=== PATIENT | female | born 1945 | race Caucasian/White ===

== ENCOUNTER 2017-09-04 09:57 | Emergency (ER) | payer OTHER ==
[2017-09-04] MEDS: HYDROCODONE/APAP (5/325) TAB PO (12:54)
[2017-09-04] MEDS: KETOROLAC 30 MG INJ IM (12:54)
== END 2017-09-04 15:38 | disposition home or self-care (01) ==
LOC: FTE 09:57
DX: S39.92XA Unspecified injury of lower back, initial encounter (principal); W10.9XXA Fall (on) (from) unspecified stairs and steps, initial encounter; Y92.9 Unspecified place or not applicable
CPT/HCPCS: 72128; 72131; 96372; 99285-25

== ENCOUNTER 2018-10-06 10:46 | Inpatient (IN) | payer OTHER ==
[~2018-10-06 10:46] MED LIST: BUPIVACAINE 0.5% (SDV) 30 ML, morphine SULFATE (PF) 8 MG, EPINEPHrine 0.3 MG, KETOROLAC... IRR; EPHEDrine SULFATE 50 MG/5 ML SYG; GLYCOPYRROLATE 0.4 MG INJ; NEOSTIGMINE 3 MG/3 ML SYRINGE
[2018-10-06] MEDS ORDERED: ROCURONIUM 50 MG INJ (12:00)
[2018-10-06] MEDS ORDERED: CEFAZOLIN 1 GM INJ (12:00)
[2018-10-06] MEDS ORDERED: PROPOFOL 20 ML (12:00)
[2018-10-06] MEDS ORDERED: MIDAZOLAM 1 MG/ML 2 ML INJ (12:01)
[2018-10-06] MEDS ORDERED: ROPIVACAINE 0.5 % 30 ML VIAL (12:01)
[2018-10-06] MEDS ORDERED: FENTAnyl 50 MCG/ML VIAL (12:01)
[2018-10-06] MEDS: GABAPENTIN 300 MG CAP PO ×2 (12:10→21:09)
[2018-10-06] MEDS: DEXAMETHASONE 1 MG TAB PO ×2 (12:10→12:13)
[2018-10-06] MEDS ORDERED: ONDANSETRON 4 MG INJ IV ×2 (13:00→14:30)
[2018-10-06] MEDS ORDERED: LABETALOL HCL 20MG INJ IV (13:00)
[2018-10-06] MEDS ORDERED: FENTAnyl 50 MCG/ML VIAL IV ×2 (13:00)
[2018-10-06] MEDS ORDERED: OXYCODONE/ACETAMINOPHEN (5/325) TAB PO (13:00)
[2018-10-06] MEDS ORDERED: METOCLOPRAMIDE 10 MG INJ IV (13:00)
[2018-10-06] MEDS ORDERED: EPHEDrine SULFATE 50 MG/5 ML SYG IV (13:00)
[2018-10-06] MEDS ORDERED: THROMBIN (BOVINE) 5,000 UNIT VIAL TP (13:16)
[2018-10-06] MEDS ORDERED: CA CHLORIDE (GM) 10% 10 ML INJ (13:16)
[2018-10-06] MEDS: POLYMYXIN/BACITRACIN 1L IRRIG (13:17)
[2018-10-06] MEDS ORDERED: METOCLOPRAMIDE 10 MG INJ (13:50)
[2018-10-06] MEDS ORDERED: DEXAMETHASONE 4 MG/ML 5 ML INJ (13:50)
[2018-10-06] MEDS ORDERED: KETOROLAC 30 MG INJ (13:50)
[2018-10-06] MEDS ORDERED: ONDANSETRON 4 MG INJ (13:50)
[2018-10-06] MEDS ORDERED: PHENYLephrine (100 MCG/ML) 5ML SYG (13:51)
[2018-10-06] MEDS ORDERED: LOPERAMIDE 2 MG CAP PO (14:30)
[2018-10-06] MEDS ORDERED: NACL 0.9% 3 ML SYG IV (14:30)
[2018-10-06] MEDS ORDERED: ZOLPIDEM 5 MG TAB PO (14:30)
[2018-10-06] MEDS ORDERED: MAGNESIUM HYDROXIDE 30ML CUP PO (14:30)
[2018-10-06] MEDS ORDERED: DIPHENHYDRAMINE 50 MG INJ IV (14:30)
[2018-10-06] MEDS ORDERED: HYDROmorphONE 1 MG/ML SYG IV (14:30)
[2018-10-06] MEDS ORDERED: oxyCODONE 5 MG TAB PO ×2 (14:30)
[2018-10-06] MEDS ORDERED: HYDROCORTISONE 100 MG INJ (15:01)
[2018-10-06] MEDS ORDERED: hydrALAzine 20 MG INJ (15:01)
[2018-10-06] MEDS ORDERED: LABETALOL HCL 20MG INJ (15:02)
[2018-10-06] MEDS ORDERED: DIPHENHYDRAMINE 50 MG INJ (15:05)
[2018-10-06] MEDS: CEFAZOLIN 1 GM/50 ML (PMX) 50 ML IVPB ×2 (15:19→21:17)
[2018-10-06] MEDS: HYDROmorphONE 1 MG/5 ML IV SYRINGE IV ×3 (15:24→15:44)
[2018-10-06] MEDS: TRANEXAMIC ACID 1,000 MG in SOD CHLORIDE 0.9% 100 ML IVPB (15:24)
[2018-10-06] MEDS: hydrALAzine 20 MG INJ IV (15:53)
[2018-10-06] MEDS: CEFAZOLIN 2 GM/50 ML (PMX) 50 ML IVPB (16:58)
[2018-10-06] MEDS: TRANEXAMIC ACID 1,000 MG in DEXTROSE 5% 100 ML IVPB (16:59)
[2018-10-06] MEDS: DEXAMETHASONE 2 MG TAB PO ×2 (18:06→23:38)
[2018-10-06] MEDS: KETOROLAC 15 MG INJ IV (18:07)
[2018-10-06] MEDS: ACETAMINOPHEN 500 MG TAB PO ×2 (18:07→23:38)
[2018-10-06] MEDS: oxyCODONE 5 MG TAB PO (19:41)
[2018-10-06] MEDS: ATORVASTATIN 10 MG TAB PO (21:09)
[2018-10-06] MEDS: SENNA/DOCUSATE NA (8.6MG/50MG) TAB PO (21:09)
[2018-10-07] MEDS: DEXAMETHASONE 2 MG TAB PO (05:20)
[2018-10-07] MEDS: oxyCODONE 5 MG TAB PO ×2 (05:20→09:17)
[2018-10-07] MEDS: CEFAZOLIN 1 GM/50 ML (PMX) 50 ML IVPB (05:23)
[2018-10-07] MEDS: ACETAMINOPHEN 500 MG TAB PO (05:24)
[2018-10-07] MEDS: SENNA/DOCUSATE NA (8.6MG/50MG) TAB PO (08:31)
[2018-10-07] MEDS: ESCITALOPRAM 10 MG TAB PO (08:31)
[2018-10-07] MEDS: FENOFIBRATE 145 MG TAB PO (08:31)
[2018-10-08] MEDS ORDERED: INFLUENZA VIRUS VACCINE 0.5 ML (DISPENSING) IM* (10:00)
== END 2018-10-07 11:59 | disposition home or self-care (01) | DRG 483 ==
LOC: REC 10:46 → MS1 17:33
PROC: 0RRJ00Z Replacement of Right Shoulder Joint with Reverse Ball and Socket Synthetic Substitute, Open Approach (ICD-10-PCS; principal; 2018-10-06 13:07)
DX: S42.201A Unspecified fracture of upper end of right humerus, initial encounter for closed fracture (principal); M75.101 Unspecified rotator cuff tear or rupture of right shoulder, not specified as traumatic; W18.30XA Fall on same level, unspecified, initial encounter
CPT/HCPCS: 73030-RT; 86999; 88304; 88311; 97161